=== PATIENT | female | born 1990 | race Caucasian/White ===

== ENCOUNTER 2021-08-16 08:06 | Emergency (ER) | payer OTHER ==
[~2021-08-16] VITALS: Ht 162.6 cm; Wt 59.0 kg
[~2021-08-16 08:06] MED LIST: ANUSOL-HC30 GM RC; BACTROBAN22 GM TOP; CLOTRIMAZOLE-BE15 GM TOP; COLACE100 MG PO; NORCO 5-325 TA1 EACH PO; PRENATA CHEWAB1 EACH MT
[2021-08-16] MEDS ORDERED: MIRENA1 EACH IY (08:27)
[2021-08-16] MEDS ORDERED: HYDROCODON-ACE1 EA10 PO (09:54)
== END 2021-08-16 10:18 | disposition home or self-care (01) ==
LOC: ED 08:06
PROC: 0PSTXZZ Reposition Right Finger Phalanx, External Approach (ICD-10-PCS; principal; 2021-08-16)
DX: S62.642A Nondisplaced fracture of proximal phalanx of right middle finger, initial encounter for closed fracture (principal); S62.614A Displaced fracture of proximal phalanx of right ring finger, initial encounter for closed fracture; W26.8XXA Contact with other sharp object(s), not elsewhere classified, initial encounter; F17.200 Nicotine dependence, unspecified, uncomplicated; Z79.899 Other long term (current) drug therapy
CPT/HCPCS: 26725; 73130; 73140; 99283-25

== ENCOUNTER 2022-07-23 07:12 | Emergency (ER) | payer SELFPAY ==
[~2022-07-23] VITALS: Ht 162.6 cm; Wt 59.0 kg
[~2022-07-23 07:12] MED LIST changes: +HYDROCODON-ACE1 EA10 PO; +MIRENA1 EACH IY
[2022-07-23] MEDS ORDERED: NAPROSYN500 MG PO (08:06)
[2022-07-23] MEDS ORDERED: METHOCARBAMOL500 MG PO (08:06)
[2022-07-23] MEDS ORDERED: HYDROCODON-ACE1 EA10 PO (08:06)
== END 2022-07-23 08:16 | disposition home or self-care (01) ==
LOC: ED 07:12
DX: S20.211A Contusion of right front wall of thorax, initial encounter (principal); F17.200 Nicotine dependence, unspecified, uncomplicated; W19.XXXA Unspecified fall, initial encounter
CPT/HCPCS: 71101; 99283-25